=== PATIENT | female | born 1990 | race African-American/Black ===

== ENCOUNTER 2019-01-31 13:39 | Emergency (ER) | payer MEDICAID ==
[~2019-01-31] VITALS: Ht 170.2 cm; Wt 83.9 kg
[2019-01-31] MEDS ORDERED: OLANZAPINE20 MG ORAL (13:54)
[2019-01-31] MEDS ORDERED: DOCUSATE SODIU100 MG ORAL (13:54)
[2019-01-31] MEDS ORDERED: IBUPROFEN600 MG ORAL (13:54)
[2019-01-31] MEDS ORDERED: CLONIDINE HCL0.1 MG PO (13:54)
[2019-01-31] MEDS ORDERED: OLANZAPINE2.5 MG ORAL (13:54)
--- NOTE | 2019-01-31 14:05 | NUR ---
ED Nurse Note: Pt walked in from [facility] accompanied by staff, c/o constipation. Last reported BM was Thursday01/29/19 with blood per staff. Pt was placed on hospital gown, surveillance monitor and cont. pulse ox. Pt seen by PA. Will continue to monitor.
[2019-01-31] MEDS ORDERED: Isovue-300 100ml vial INJ PRN (14:15)
[2019-01-31 15:04] VITALS: BP 135/91
[2019-01-31 15:28] LABS: EOSINOPHILS % (AUTO) 1.2 % (0.0-3.0); HEMATOCRIT 45.1 % (37.0-47.0); HEMOGLOBIN 14.6 G/DL (12.0-16.0); MEAN CORPUSCULAR VOLUME 90 FL (80-99); MONOCYTES % (AUTO) 5.5 % (1.0-10.0); NEUTROPHILS % (AUTO) 62.3 % (45.0-75.0); PLATELET COUNT 358 K/UL (150-450); RED BLOOD COUNT 5.01 M/UL (4.20-5.40); RED CELL DISTRIBUTION WIDTH 11.8 % (11.6-14.8)
[2019-01-31 15:28] LABS: APPEARANCE,URINE CLEAR; BILIRUBIN, URINE NEGATIVE (NEGATIVE); COLOR,URINE PALE YELLOW; GLUCOSE, URINE (UA) NEGATIVE (NEGATIVE); KETONES,URINE NEGATIVE (NEGATIVE); LEUKOCYTE ESTERASE ,URINE 2+ (NEGATIVE); NITRITE,URINE NEGATIVE (NEGATIVE); PH,URINE 7 (4.5-8.0); PROTEIN,URINE NEGATIVE (NEGATIVE); UROBILINOGEN,URINE NORMAL MG/DL (0.0-1.0)
[2019-01-31 15:29] LABS: ANION GAP 5 mmol/L (5-15); BLOOD UREA NITROGEN 8 mg/dL (7-18); CALCIUM 9.8 MG/DL (8.5-10.1); CARBON DIOXIDE 31 MMOL/L (21-32); CHLORIDE 105 MMOL/L (98-107); CREATININE 0.8 MG/DL (0.55-1.30); POTASSIUM 4.3 MMOL/L (3.5-5.1); SODIUM 141 MMOL/L (136-145)
[2019-01-31 15:35] LABS: ALANINE AMINOTRANSFERASE 26 U/L (12-78); ALBUMIN 3.8 G/DL (3.4-5.0); ALBUMIN/GLOBULIN RATIO 0.9 (1.0-2.7); ALKALINE PHOSPHATASE 78 U/L (46-116); ASPARTATE AMINO TRANSFERASE 13 U/L (15-37); BILIRUBIN,TOTAL 0.2 MG/DL (0.2-1.0)
--- NOTE | 2019-01-31 15:40 | NUR ---
ED Nurse Note: Pt was taken down for CT in stable condition.
--- NOTE | 2019-01-31 15:58 | NUR ---
ED Nurse Note: Pt back from CT, in stable condition. Placed back on electronic device monitor and cont. pulse ox. Will cont. to monitor.
[2019-01-31 16:21] VITALS: BP 121/87
--- NOTE | 2019-01-31 16:42 | Diagnostic Imaging Report ---
Clinical Indication: Is what in stool, distending, constipated, tender to palpation left lower quadrant Technique: No oral contrast utilized, per emergency room physician request IV administration nonionic contrast. Venous phase spiral acquisition obtained through the abdomen and pelvis. Multiplanar reconstructions were generated. Total dose length product 1529 mGycm. CTDIvol(s) 27 mGy. Dose reduction achieved using automated exposure control Comparison: none Findings: The appendix is normal. The colon is diffusely stool-filled. No evidence of diverticulosis or diverticulitis. No small bowel distention there is some free fluid in the pelvic cul-de-sac. No free intraperitoneal gas demonstrated. The distal esophagus, stomach, duodenum are unremarkable. The liver, gallbladder, bile ducts, pancreas, spleen, adrenals, kidneys are unremarkable. No retroperitoneal or mesenteric mass or adenopathy. No pelvic mass or adenopathy. The included lung bases demonstrate posterior dependent atelectatic changes. 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 Impression: Diffusely stool-filled colon, may indicate constipation. Correlate with clinical findings No acute process otherwise Incidental findings as noted The CT scanner at [facility] is accredited by the [employer] and the scans are performed using protocols designed to limit radiation exposure to as low as reasonably achievable to attain images of sufficient resolution adequate for diagnostic evaluation.
--- NOTE | 2019-01-31 16:55 | Emergency Room Report ---
History of Present Illness General Chief Complaint: Abdominal Pain Source: Caregiver Present Illness HPI 28-year-old female with history of depression with psychotic features currently controlled brought in by supervisor lump room from psychiatric facility complaining of over 1 month of constipation. Patient has been having gross amount of blood in her stool (fresh blood) in The past few days. Patient is currently taking docusate however with no relief. Last bowel movement was 2 days ago. Complains of flatulence, abdominal pain diffuse, denies nausea vomiting. Denies fever and chills, hematemesis. Patient is currently taking olanzapine, fluoxetine. No change has been done to her medication regimen. Her psychiatrist is aware of the constipation. Patient is denying any suicidal homicidal ideation. Denies chest pain, shortness of breath, palpitation, no other associated symptoms. Denies any abdominal surgeries in the past. Reports that she has been urinating okay without any pain or frequency. Patient is not sexually active. Her last menstrual period was 2 weeks ago and regular. Allergies: Coded Allergies: No Known Allergies (Unverified , 01/31/19) Patient History Past Medical History: see triage record, psych hx Past Surgical History: unable to obtain Pertinent Family History: none Now: No Immunizations: UTD Reviewed Nursing Documentation: PMH: Agreed; PSxH: Agreed Nursing Documentation-PMH History Of Psychiatric Problem: Yes - DEPRESSION Review of Systems All Other Systems: negative except mentioned in HPI Physical Exam Vital Signs Date Time Temp Pulse Resp B/P (MAP) Pulse Ox O2 Delivery O2 Flow Rate FiO2 01/31/19 13:49 98.8 96 19 133/91 (105) 96 Room Air Sp02 EP Interpretation: reviewed, normal General Appearance: no apparent distress, alert, GCS 15, non-toxic Head: normocephalic, atraumatic Eyes: bilateral eye normal inspection, bilateral eye PERRL ENT: hearing grossly normal, normal pharynx, no angioedema, normal voice Neck: full range of motion, supple/symm/no masses Respiratory: chest non-tender, lungs clear, normal breath sounds, no rhonchi, speaking full sentences Cardiovascular #1: regular rate, rhythm, no edema, no murmur Gastrointestinal: normal bowel sounds, non tender, soft, no guarding, no rebound, distended Rectal: deferred Genitourinary: normal inspection, no CVA tenderness Musculoskeletal: back normal, gait/station normal, normal range of motion, non- tender Neurologic: alert, oriented x3, responsive, motor strength/tone normal, sensory intact, speech normal Psychiatric: judgement/insight normal, memory normal, mood/affect normal, no suicidal/homicidal ideation Skin: no rash Lymphatic: no adenopathy Medical Decision Making PA Attestation All my diagnosis and treatment plans were reviewed ad discussed with my supervising physician Dr. Pardo Diagnostic Impression: Primary Impression: Constipation ER Course 28-year-old female with history of depression with psychotic features currently controlled brought in by supervisor lump room from psychiatric facility complaining of over 1 month of constipation. Patient has been having gross amount of blood in her stool (fresh blood) in The past few days. Patient is currently taking docusate however with no relief. Last bowel movement was 2 days ago. Complains of flatulence, abdominal pain diffuse, denies nausea vomiting. Denies fever and chills, hematemesis. Patient is currently taking olanzapine, fluoxetine. No change has been done to her medication regimen. Her psychiatrist is aware of the constipation. Patient is denying any suicidal homicidal ideation. Denies chest pain, shortness of breath, palpitation, no other associated symptoms. Denies any abdominal surgeries in the past. Reports that she has been urinating okay without any pain or frequency. Patient is not sexually active. Her last menstrual period was 2 weeks ago and regular. Ddx considered but are not limited to: appendicitis, cholecystis, gastritis, gastroenteritis, UTI, pyelonephritis, SBO, diverticulitis, influenza with GI manifestation, constipation uncomplicated, uncomplicated constipation Vital signs: are WNL, pt. is afebrile H&PE are most consistent with: constipation ORDERS: abdominal CT, abdominal pain set, lactulose ED INTERVENTIONS: None required at this time. DISCHARGE: At this time pt. is stable for d/c to home. Will provide printed patient care instructions, and any necessary prescriptions. Care plan and follow up instructions have been discussed with the patient prior to discharge.increase oral hydration, fiber intake. see GI for follow up CT/MRI/US Diagnostic Results CT/MRI/US Diagnostic Results : Imaging Test Ordered: abd pelvis CT with contrast Impression WNL, Last Vital Signs Date Time Temp Pulse Resp B/P (MAP) Pulse Ox O2 Delivery O2 Flow Rate FiO2 01/31/19 16:21 98.8 95 16 121/87 99 Room Air Disposition: HOME, SELF-CARE Condition: Stable Scripts Lactulose (LACTULOSE*) 20 Gm/30 Ml Solution 20 ML ORAL BID for 3 Days, #120 ML 0 Refills Prov: Brian Tinsley 01/31/19 Referrals: [facility],REFERRING (PCP) Patient Instructions: Abdominal Pain, Adult, Constipation, Adult, [id number] Additional Instructions: Take medication as directed follow-up with your primary care provider if worsening symptoms return to the emergency room also I recommend that you follow -up with a operations lieutenant Brian Tinsley Jan 31, 2019 16:54
[2019-01-31] MEDS ORDERED: LACTULOSE20 GM/301 ORAL (16:56)
[2019-01-31 17:04] VITALS: BP 125/85
--- NOTE | 2019-01-31 17:05 | NUR ---
ER DISCHARGE NOTE: Patient is cleared to be discharged per ERMD, pt is aox4, on room air, with stable vital signs. pt was given dc and prescription instructions, pt was able to verbalize understanding, pt id band and iv site removed without complications. pt is able to ambulate with steady gait accompanied by caaregiver. pt took all belongings.
== END 2019-01-31 17:05 | disposition home or self-care (01) ==
LOC: EMR 14:10
DX: K59.00 Constipation, unspecified (principal); F32.9 Major depressive disorder, single episode, unspecified
CPT/HCPCS: 36415; 74177; 80053; 80307; 81001; 81025; 85025; 85651; 86140; Q9967; Z7502; 99284